=== PATIENT | female | born 1940 | race Caucasian/White ===

== ENCOUNTER 2018-04-18 16:07 | Emergency (ER) | payer MEDICARE ==
[2018-04-18 16:19] VITALS: TEMP 98.3
--- NOTE | 2018-04-18 16:27 | C.PDOC ---
History Of Present Illness This is a 78 year old female with PMHx of hypertension who presents s/p fall. Patient had an appointment to have a chest xray performed at a local radiology center. She took a step into the building but misjudged the height of the step and caught her left leg on the step. She landed face forward, landing most of her weight on her left knee. Patient admits to left knee pain and inability to bear weight. Denied any associated headaches, blurry vision, LOC, any bleeding, any audible cracking or clicking upon fall. Patient is not on any anticoagulation. - HPI Time Seen by Provider: 04/18/18 16:25 Chief Complaint (Nursing): Trauma Past Medical History Vital Signs: Last Vital Signs Temp 98.3 F 04/18/18 16:14 Pulse 109 H 04/18/18 16:14 Resp 20 04/18/18 16:14 BP 154/81 H 04/18/18 16:14 Pulse Ox 96 04/18/18 16:14 - Medical History PMH: Asthma, Bronchitis, HTN, Hypercholesterolemia Family History: States: No Known Family Hx - Social History Hx Alcohol Use: No Hx Substance Use: No - Immunization History Hx Tetanus Toxoid Vaccination: (unk) Hx Influenza Vaccination: Yes Hx Pneumococcal Vaccination: Yes Review Of Systems Neurological: Negative for: Incoordination, Confusion, Altered Mental Status, Headache, Dizziness Physical Exam - Physical Exam Appears: Well, Non-toxic, No Acute Distress Skin: Normal Color, Warm, Dry Head: Tenderness, Swelling (noted on right frontal area, no abrasion noted ), No Laceration Eye(s): bilateral: Normal Inspection, PERRL, EOMI Ear(s): Bilateral: Normal Nose: No Discharge, No Epistaxis, Other (abrasion noted on the tip of the nose ) 1 - abrasion noted above right area of lip Cardiovascular: Rhythm Regular Respiratory: Normal Breath Sounds Gastrointestinal/Abdominal: Normal Exam, Bowel Sounds, Soft, No Tenderness Extremity: Tenderness, No Calf Tenderness, Capillary Refill, Swelling Extremity: Right: Limited ROM To Joint, Painful To Bear Weight Pulses: Left Dorsalis Pedis: Normal, Right Dorsalis Pedis: Normal Neurological/Psych: Oriented x3, Normal Speech, Normal Cognition ED Course And Treatment O2 Sat by Pulse Oximetry: 96 Medical Decision Making Medical Decision Making: Mechanical Fall - Patient is not tender to palpation on frontal, maxillary, nasal area - Left knee limited flexion, pain upon passive flexion, some edema noted - Tylenol given for pain - Will order Xray of left knee -- Xray reviewed, no evidence of fractures Disposition Doctor Will See Patient In The: Office Counseled Patient/Family Regarding: Need For Followup - Disposition Disposition: HOME/ ROUTINE Disposition Time: 17:58 Condition: GOOD Additional Instructions: Please take Tylenol or Motrin as needed for pain. Please rest the knee, ice it as necessary and elevate the knee with a pillow to assist with healing. Please follow up with your PMD within 1 week. Please take care and be well. Instructions: Knee Sprain (DC) Forms: [employer] (Yakut) Print Language: CHADIAN - POA Present On Arrival: None - Clinical Impression Clinical Impression: Knee sprain
[2018-04-18] MEDS ORDERED: Bacitracin 500 Units/gm Oint Foilpak UD ONE ×2 (18:05→18:06)
--- NOTE | 2018-04-18 18:12 | RAD ---
Date of service: 04/18/2018 PROCEDURE: Left Knee Radiographs. HISTORY: Pain. COMPARISON: None. FINDINGS: BONES: There is diffuse bone demineralization. There is no acute displaced fracture or bone destruction. Bone alignment is normal. JOINTS: There is moderate tricompartmental degenerative osteoarthrosis with reduced joint spaces, marginal osteophytes and tibial spiking, worse in the patellofemoral compartment. JOINT EFFUSION: None. OTHER FINDINGS: None. IMPRESSION: No acute displaced fracture or dislocation. 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
[2018-04-18 18:30] VITALS: BP 149/82; PULSE 89; RESP 16; O2SAT 98
== END 2018-04-18 18:26 | disposition home or self-care (01) ==
LOC: C.ER 16:07
DX: S83.92XA Sprain of unspecified site of left knee, initial encounter (principal); W19.XXXA Unspecified fall, initial encounter; I10 Essential (primary) hypertension; E78.00 Pure hypercholesterolemia, unspecified